=== PATIENT | male | born 1985 | race Caucasian/White ===

== ENCOUNTER 2022-01-13 11:50 | Inpatient (IN) | payer OTHER ==
[~2022-01-13] VITALS: Ht 180.3 cm; Wt 123.5 kg
[~2022-01-13 11:50] MED LIST: CYCL10 PO; NAPR500 PO
[2022-01-13 12:37] LABS: BASOPHILS ABSOLUTE AUTO 0.06 K/mm3 (0.00-0.23); BASOPHILS PERCENT AUTO 0 % (0-2); EOSINOPHILS ABSOLUTE AUTO 0.06 K/mm3 (0.00-0.68); EOSINOPHILS PERCENT AUTO 0 % (0-6); Hematocrit 48.7 % (37.0-53.0); Hemoglobin 17.3 g/dL (13.5-17.5); IMMATURE GRAN ABSOLUTE AUTO 0.09 K/mm3 (0.00-0.10); IMMATURE GRAN PERCENT AUTO 1 % (0-1); LYMPHOCYTES ABSOLUTE AUTO 3.01 K/mm3 (0.84-5.20); LYMPHOCYTES PERCENT AUTO 18 % (21-46); MONOCYTES ABSOLUTE AUTO 0.82 K/mm3 (0.16-1.47); MONOCYTES PERCENT AUTO 5 % (4-13); Mean Corpuscular HGB 32.2 pg (26.0-34.0); Mean Corpuscular HGB Conc 35.5 g/dL (31.5-36.5); Mean Corpuscular Volume 91 fL (80-100); Mean Platelet Volume 10.2 fL (9.1-12.4); NEUTROPHILS ABSOLUTE AUTO 12.34 K/mm3 (1.96-9.15); NEUTROPHILS PERCENT AUTO 75 % (41-73); Platelet Count 364 K/mm3 (150-400); RDW Coefficient Variation 11.9 % (11.7-14.2); RDW Standard Deviation 39.3 fL (35.1-46.3); Red Blood Cell Count 5.37 M/mm3 (4.30-5.90); White Blood Cell Count 16.38 K/mm3 (4.00-11.30)
[2022-01-13 12:50] LABS: Albumin, Blood 4.2 g/dL (3.4-5.0); Albumin/Globulin Ratio 1.3 (0.8-1.8); Bilirubin, Total 0.6 mg/dL (0.1-1.0); Bun/Creatinine Ratio 18.8 (12.0-20.0); Calcium, Blood 8.7 mg/dL (8.5-10.1); Creatinine, Blood 0.9 mg/dL (0.60-1.20); Globulin, Blood 3.3 g/dL (2.2-4.0); Potassium, Blood 3.6 mmol/L (3.5-5.5); Total Protein, Blood 7.5 g/dL (6.4-8.2)
[2022-01-13] MEDS ORDERED: LORA10ER PO (15:21)
--- NOTE | 2022-01-13 16:59 | NUR ---
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 REPORT RECEIVED, HE IS PLACED ON THE MONITORS, ASSESSMENT COMPLETED, PT WITH TR BAND ON RIGHT WRIST, PLACED AT 1458, SITE C/D/I, WNL. SHIPPING ASSOCIATE YADY ARRIVES FOR EXAM, PT GOES INTO VENTRICULAR TACH, CONSISTENTLY, PT DENIES ANY CHEST PAIN, DIZZINESS, SHORTNESS OF BREATH. PT POPS OUT OF IT AND BACK IN SEVERAL TIMES, CALLED AND STATES HE IS EXPECTING THAT IT WAS PRETTY CONSISTENT ON THE TABLE WELL. PT RESUMES THE ECHO. RADIOLOGY COMES IN TO OBTAIN CXR. PT CONTINUES TO DENY ANY CHEST PAIN OR N/V/DIZZINESS. PT ENGAGING AND COOPERATIVE. HE IS UP TO THE BR X 1, HE IS TAKING IN WATER, CONTINUES TO HAVE RUNS OF VTACH. PT TEACHING IN REGARDS TO BLOOD THINNERS, REPERFUSION, CHEST PAIN, ARRYTHMIAS AND EXPECTED POST PROCEDURE OUTCOMES. PT EXPRESSES DISAPPOINTMENT THAT HE HAS "ALLOWED HIMSELF TO HAVE A HEART ATTACK AT AGE 36". HE HASN'T TOLD HIS S/O SHE WAS AT WORK WHEN HE CAME IN TO WORK. HIS FATHER IS AN RN WHO LIVES IN [place] AND HE HAS NOT TOLD HIM EITHER. HE STATES HE IS STILL IN A BIT OF SHOCK THAT HE HAS HAD AN TX. ENCOURAGEMENT AND POSITIVE REINFORCEMENT GIVEN.
--- NOTE | 2022-01-13 18:24 | NUR ---
BEGAN REMOVING AIR FROM THE TR BAND, 2ML [id number]. AFTER THE 3 TIME, WITH 6ML REMOVED, THE RIGHT WRIST SITE BEGAN TO OOZE SLIGHTLY. NO FURTHER AIR HAS BEEN REMOVED. WILL CONTINUE TO MONITOR. HE CONTINUES TO DENY ANY CHEST PAIN OR DIZZINESS, N/V, HE CONTINUES TO HAVE RUNS OF VTACH, LESS THAN EARLIER. PT'S S/O ARRIVED ABOUT HALF HOUR AGO AND IS INCREDIBLY UPSET WITH THE PATIENT FOR NOT TELLING HER. EDUCATION DONE ABOUT WHAT HAS TRANSPIRED, THE TR BAND, THE POST PROCEDURE FOLLOW UP AND EXPECTATIONS FOR THE HOSPITAL STAY. VERBAL UNDER- STANDING.
--- NOTE | 2022-01-13 19:00 | NUR ---
ASSUMED CARE: REPORT RECEIVED FROM JUD LEIGH. PATIENT CURRENTLY SITTING UP IN BED A/OX4, DENIES ANY PAIN/DISCOMFORT. TIRE CHANGER AIRCRAFT SHOWS NSR WITH INTERMITTENT, NON-SUSTAINED, ASYMPTOMATIC RUNS OF VTACH. TR BAND ON LEFT WRIST AT 5ML SHOWING SCANT OOZING. WILL MAINTAIN TR BAND AT CURRENT PRESSURE AND RECHECK ORDERED. PATIENT DENIES SOB AND IS MAINTAINING SPO2 >95% ON RA. PATIENT TOLERATED DINNER AND DENIES ANY NAUSEA. NEED TO OBTAIN UA, BUT PATIENT DENIES URGE TO VOID AT THIS TIME.
--- NOTE | 2022-01-13 19:45 | NUR ---
PATIENT IS BEING VISITED BY S/O (ROOPA). PATIENT APPEARS IN GOOD SPIRITS AND IS SMILING AND CONVERSANT WITH S/O.
--- NOTE | 2022-01-13 21:00 | NUR ---
REMOVED TR BAND AND DRESSED WITH 2X2 GAUZE AND TAGADERM.
[2022-01-13 21:16] LABS: Source, Urine Clean Catch
[2022-01-13 21:21] LABS: Appearance, Urine Clear (Clear); Bilirubin, Urine Neg (Neg); Blood, Urine Neg (Neg); Color, Urine Yellow (P-Yellow); Glucose Qualitative, Urine Neg (Neg); Ketones, Urine 1+ (Neg); Leukocyte Esterase, Urine Neg (Neg); Nitrite, Urine Neg (Neg); Protein, Urine Neg (Neg); Urobilinogen, Urine NORM (Normal)
[2022-01-13 21:37] LABS: U Buprenorphine Screen Not Detected; U Cannabinoids Screen Not Detected; U Methadone Screen Not Detected; U Opiates Screen DETECTED; U Oxycodone Screen Not Detected; U Phencyclidine Screen Not Detected; U Propoxyphene Screen Not Detected
[2022-01-13 21:38] LABS: U Amphetamine Screen Not Detected; U Barbituate Screen Not Detected; U Benzodiazapine Screen Not Detected; U Cocaine Screen Not Detected; U Methamphetamine Screen Not Detected
[2022-01-14 04:05] LABS: Anion Gap 7 mmol/L (6-16); Blood Urea Nitrogen 13 mg/dL (8-24); Bun/Creatinine Ratio 16.2 (12.0-20.0); CO2, Blood 26 mmol/L (21-32); Calcium, Blood 8.7 mg/dL (8.5-10.1); Chloride, Blood 106 mmol/L (98-108); Glomerular Filtration Rate 119 (60-); Glucose, Blood 100 mg/dL (70-99); Potassium, Blood 3.6 mmol/L (3.5-5.5); Sodium, Blood 139 mmol/L (136-145)
--- NOTE | 2022-01-14 06:29 | NUR ---
NEURO: A/OX4 WHEN AWAKE. SLEPT THROUGH THE NIGHT RESP: SPO2 >95% ON RA CARD: INTERMITTENT, ASYMPTOMATIC, NON-SUSTAINED EPISODES OF VTACH. OTHERWISE, HEMODYNAMICALLY STABLE GI/: UOP APPROX 1L DURING SHIFT. SKIN: INTACT
[2022-01-14 08:46] LABS: CHOL/HDL RATIO 7.1; Cholesterol 228 mg/dL (50-200); HDL Cholesterol 32 mg/dL (>39); Low Density Lipoprotein Chol 158 mg/dL (0-110); Magnesium, Blood 2.3 mg/dL (1.6-2.4); Triglycerides 188 mg/dL (30-140); Very Low Density Lipoprot Chol 37 mg/dL (6-28)
--- NOTE | 2022-01-14 12:24 | NUR ---
LATE ENTRY: PT NOTED TO BE SLOWING IN THE HEART RATE, UPON ENTERING ROOM PT IS PALE AND EYES ARE ROLLED BACK AND HE HAS SLUMPED TO THE RIGHT SIDE OF THE CHAIR, A STERNAL RUB ILLICITS A HAND SLAP AND PT NOTED TO BE VERY DIAPHORETIC. EKG, BLOOD PRESSURE, CHEM BG OBTAINED, CALL TO , ORDERED 500ML FLUID BOLUS. GIRLFRIEND WAS AT THE BEDSIDE, SHE WAS BRIEFLY EXCUSED AND RETURNED TO THE ROOM. PT STATES HE DID NOT HAVE ANY CHEST PAIN, SHORTNESS OF BREATH OR N/V. HE SAID HE FELT LIKE HE PASSED OUT AND WAS "DREAMING". CONTINUED TO BE PALE AND DIAPHORETIC FOR ABOUT 20 MINUTES, BLOOD PRESSURE LABILE. HEART RATE NOW IN THE 70S.
[2022-01-14] MEDS ORDERED: ASPI81CH PO (12:49)
[2022-01-14] MEDS ORDERED: ATOR80 PO (12:51)
[2022-01-14] MEDS ORDERED: METO25ER PO (12:52)
[2022-01-14] MEDS ORDERED: TICA90TA PO (12:54)
--- NOTE | 2022-01-14 13:47 | NUR ---
MIRIAM HAS NOT HAD ANY MORE REPORTS OF FEELING DIZZY OR LIGHTHEADED. HE IS ABLE TO RELAX IN THE BED AND MAKE PHONE CALLS. HE WAS ABLE TO STAND AT THE BEDSIDE AND USE THE URINAL. URINE IS DARK AND CONCENTRATED. DISCHARGE ORDERS REMAIN. INSTRUCTIONS HAVE BEEN PRINTED OUT AND ARE MADE READY TO GO OVER WITH PATIENT.
--- NOTE | 2022-01-14 18:14 | NUR ---
SPOKE WITH MIRIAM AND ENCOURAGED HIM TO SPEND ONE MORE NIGHT. HE DID RELENT AND IS STAYING. HE IS MOVED FROM ICU-15 TO ICU-2, HE AMBULATED ACROSS THE UNIT DENYING ANY CHEST PAIN OR SHORTNESS OF BREATH. HE SAT IN THE CHAIR WHILE THE BED WAS BROUGHT OVER AND HE HAD A SHORT RUN OF VTACH AND C/O FEELING A FLUTTER IN HIS CHEST. HE HAS NO OTHER COMPLAINTS SINCE RETURNING TO BED. HIS S/O BROUGHT IN A SALAD FOR DINNER AND HE WAS HAPPY TO EAT THAT. VSS. NO OTHER CHANGES.
--- NOTE | 2022-01-15 06:38 | NUR ---
NO ACUTE CHANGES OR CARDIAC EVENTS DURING SHIFT. PATIENT RESTED THROUGH THE NIGHT. ADEQUATE PO FLUID/NUTRITIONAL INTAKE AND UOP. UNEVENTFUL SHIFT
--- NOTE | 2022-01-15 07:58 | NUR ---
Received report from Noc RN. Patinent in bed awake and is alert and oriented a nd able to communicate his needs. he is on RA and sats >90%. Patient states has not felt any changes since yesterday. he is up independent in room. He is currently finishing breakfast. Dr vernon just left room and stated he may go home. He has 20ga IV to RAC and will not pull until leaving. He is up with bathroom privledges.
--- NOTE | 2022-01-15 08:24 | NUR ---
Patient is discharged. Reviewed discharge instructions and post appt.'s. Pulled IV intact. He is going home with girlfriend and will be with someone all day to watch him. He stated feeling well. He ambulated to exit and went home POV with all his belongings.
== END 2022-01-15 08:25 | disposition home or self-care (01) | DRG 247 ==
LOC: ER 11:50 → ICUE 11:51 → ICUW 11:51 → ER 13:25 → ICUW 15:06 → ICUE 01-14 17:24
PROVIDERS: Nurse Practitioner Acute Care; Student in an Organized Health Care Education/Training Program; ADMIT Hospitalist
PROC: 4A023N7 Measurement of Cardiac Sampling and Pressure, Left Heart, Percutaneous Approach (ICD-10-PCS; principal; 2022-01-13)
PROC: 027035Z Dilation of Coronary Artery, One Artery with Two Drug-eluting Intraluminal Devices, Percutaneous Approach (ICD-10-PCS; 2022-01-13)
PROC: B2111ZZ Fluoroscopy of Multiple Coronary Arteries using Low Osmolar Contrast (ICD-10-PCS; 2022-01-13)
PROC: B240ZZ3 Ultrasonography of Single Coronary Artery, Intravascular (ICD-10-PCS; 2022-01-13)
DX: I21.19 ST elevation (STEMI) myocardial infarction involving other coronary artery of inferior wall (principal); I25.119 Atherosclerotic heart disease of native coronary artery with unspecified angina pectoris; R73.9 Hyperglycemia, unspecified; E78.00 Pure hypercholesterolemia, unspecified; D72.828 Other elevated white blood cell count; F17.290 Nicotine dependence, other tobacco product, uncomplicated; Z79.899 Other long term (current) drug therapy; Z68.34 Body mass index [BMI] 34.0-34.9, adult; E66.01 Morbid (severe) obesity due to excess calories; R55 Syncope and collapse
CPT/HCPCS: 36415; 71045; 76937; 80048; 80053; 80061; 81003; 82947; 83036; 83735; 84484; 85025; 85347; 85379; 92978; 93005; 93010; 93458; 99152; 99153; A9270; C1725; C1753; C1769; C1874; C1887; C1894; C8929; C9600; C9606; J0461; J1644; J2250; J2270; J3010; J7030; J7040; Q9957; Q9967

== ENCOUNTER 2022-01-27 07:03 | Day surgery (SDC) | payer OTHER ==
[~2022-01-27] VITALS: Ht 180.3 cm; Wt 121.1 kg
[~2022-01-27 07:03] MED LIST changes: +ASPI81CH PO; +ATOR80 PO; +LISI5 PO; +LORA10ER PO; +METO25ER PO; +TICA90TA PO
--- NOTE | 2022-01-27 09:58 | NUR ---
PT REPORT FROM ZULEYMA LEIGH. PT A&Ox4 AND IS SITTING UP IN CHAIR.
--- NOTE | 2022-01-27 11:30 | NUR ---
2CC REMOVED FROM TR BAND. SITE SOFT AND NON-TENDER PER PT. NO BLEEDING NOTED.
--- NOTE | 2022-01-27 11:43 | NUR ---
pt given lunch tray. 2 cc removed from tr band. site soft and non-tender per pt. no bleeding noted.
--- NOTE | 2022-01-27 12:35 | NUR ---
WHILE GOING OVER DC PAPERWORK PT REPORTED FEELING LIGHTHEADED AND STATED HE MAY PASS OUT. PT HR DECREASED FROM 80BPM TO MID 30s. DR LOZANO NOTIFIED AND ORDERED 0.5MG OF ATROPINE TO BE GIVEN. PT PALE AND DIAPHORETIC. ATROPINE ADMINISTERED. EKG OBTAINED BY KAITLYN LEIGH. FLUIDS BOLUS OF 500ML ADMINISTERED PER DR LOZANO. DR LOZANO DOES NOT FEEL IT IS NECESSARY TO ADMIT PT AT THIS TIME. STS HE WANTS TO OBSERVE PT FOR 2 HOURS PRIOR TO DC.
--- NOTE | 2022-01-27 12:50 | NUR ---
PT REPORTS FEELING BETTER BUT STS HE IS NOT AT 100% YET. PT SITTING UP IN CHAIR USING CELL PHONE
--- NOTE | 2022-01-27 14:15 | NUR ---
PT REPORTS FEELING BETTER AT STS HE IS AT HIS NORMAL.
--- NOTE | 2022-01-27 14:18 | NUR ---
DR LOZANO INFORMED OF PT STATUS AND IS OK TO PROCEDE W/ DC.
--- NOTE | 2022-01-27 14:38 | NUR ---
PT AMBULATED AROUND DEPARTMENT 2 TIMES W/O ANY ISSUES. PT REPORTS FEELING NORMAL. PT NOW CHANGING INTO CLOTHES.
--- NOTE | 2022-01-27 14:53 | NUR ---
PT GIVEN DC INSTRUCTIONS AND VERBALIZED UNDERSTANDING. IV OUT. CLOTH DOT APPLIED AND ARM BOARD PLACED. PT REFUSED SLING AND WC. PT AMBULATED TO [facility] WHERE GIRLFRIEND WILL GIVE PT RIDE HOME.
== END 2022-01-27 15:06 | disposition home or self-care (01) ==
LOC: MHTC 07:03
DX: I25.10 Atherosclerotic heart disease of native coronary artery without angina pectoris (principal); I25.2 Old myocardial infarction; Z79.82 Long term (current) use of aspirin; E78.5 Hyperlipidemia, unspecified; E66.01 Morbid (severe) obesity due to excess calories; Z68.37 Body mass index [BMI] 37.0-37.9, adult
CPT/HCPCS: 76937; 85347; 93005; 93010; 93454; 93571; 93572; 99152; 99153; A9270; C1769; C1887; C1894; J0461; J1644; J2250; J3010; J7030; J7050; Q9967